=== PATIENT | female | born 1965 | race Caucasian/White ===

== ENCOUNTER 2017-07-21 12:01 | Emergency (ER) | payer MEDICARE ==
[~2017-07-21] VITALS: Ht 167.6 cm; Wt 61.0 kg
[2017-07-21 13:03] VITALS: BP 150/74
== END 2017-07-21 12:40 | disposition home or self-care (01) ==
LOC: FSED 12:01
DX: J11.1 Influenza due to unidentified influenza virus with other respiratory manifestations (principal); N30.91 Cystitis, unspecified with hematuria; R03.0 Elevated blood-pressure reading, without diagnosis of hypertension; F17.200 Nicotine dependence, unspecified, uncomplicated; Z86.2 Personal history of diseases of the blood and blood-forming organs and certain disorders involving the immune mechanism
CPT/HCPCS: 87086; 87400; 99283